=== PATIENT | female | born 1955 ===

== ENCOUNTER → 2016-09-21 | Outpatient (CLI) | payer BC | LOC: FIMAGING 15:12 | PROVIDERS: ATTEND Family Medicine | DX: N20.0 Calculus of kidney (principal); R53.83 Other fatigue; R63.5 Abnormal weight gain ==

== ENCOUNTER → 2016-09-21 | Outpatient (CLI) | payer BC | LOC: FIMAGING 14:51 | DX: Z12.31 Encounter for screening mammogram for malignant neoplasm of breast (principal) | CPT/HCPCS: G0202 ==

== ENCOUNTER 2018-06-01 14:50 | Emergency (ER) | payer OTHER, BC ==
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
[2018-06-01] MEDS ORDERED: IBUPROFEN 600 MG TAB PO ONE (14:57)
[2018-06-01] MEDS ORDERED: LORazepam 1 MG TAB PO ONE (14:57)
[2018-06-01 16:23] VITALS: BP 131/63
== END 2018-06-01 16:21 | disposition home or self-care (01) ==
LOC: EDUNIT#
DX: S39.012A Strain of muscle, fascia and tendon of lower back, initial encounter (principal); S16.1XXA Strain of muscle, fascia and tendon at neck level, initial encounter; F41.9 Anxiety disorder, unspecified; V49.49XA Driver injured in collision with other motor vehicles in traffic accident, initial encounter; Y92.810 Car as the place of occurrence of the external cause; Y93.9 Activity, unspecified; Y99.9 Unspecified external cause status

== ENCOUNTER → 2018-06-05 | Outpatient (CLI) | payer OTHER, BC | LOC: CIMAGING 08:31 | PROVIDERS: ATTEND Family Medicine | DX: S99.921A Unspecified injury of right foot, initial encounter (principal); V89.2XXA Person injured in unspecified motor-vehicle accident, traffic, initial encounter | CPT/HCPCS: 73630-PO ==